=== PATIENT | male | born 1995 | race Caucasian/White ===

== ENCOUNTER 2018-12-02 17:27 | Emergency (ER) | payer SELFPAY ==
--- NOTE | 2018-12-02 17:40 | EDPHY ---
General Time Seen by Provider: 12/02/18 17:39 Narrative: CLINICAL IMPRESSION: Dizziness ASSESSMENT/PLAN: Patient is a 23-year-old male with no significant medical history who takes no medications presents with an episode of dizziness while up at [place]. Patient is afebrile and not toxic-appearing, he is in no acute distress on arrival. His neurological exam is grossly normal with no focal deficit, negative test of skew, no truncal or gait ataxia. The onset was sudden, not insidious. There are no associated cranial nerve abnormalities and the patient has no complaints on my examination. I considered the other potentially dangerous causes of central vertigo, stroke, tumor, bleed, but the patient has no indication of central vertigo. ECG revealed nonspecific ST changes, no evidence of ischemia, WPW, prolonged QT or Brugada syndrome. CBC and BMP unremarkable. There was no evidence of anemia or hypoglycemia. Negative orthostatics. Plan is to treat the patient symptomatically and followup with PCP after an outpatient trial. No indication for admission at this time. Patient was treated with IV fluids for dehydration which I suspect is contributory as he has had very little to eat or drink today. On repeat examination prior to discharge he was able to ambulate without difficulty and his neurological exam remained grossly normal; he denied any complaints. At this time, I feel that he is safe for discharge to home with follow-up with PCP and strict return precautions for any symptoms concerning for central etiology or inability to safely perform activities of daily living. Patient will return for recurrent dizziness, headache, visual changes, ataxia, focal weakness, chest pain, shortness of breath or for any other concerning symptom. Patient verbalized understanding he is in agreement with this plan. DIFFERENTIAL DX: Dizziness including but not limited to peripheral and central causes of vertigo , orthostatic causes including dehydration, and blood loss. ED COURSE: 1749: Discussed with Dr. Philip 1804: ECG reviewed by myself and Dr. Philip, nonspecific ST changes without evidence of acute ischemia, dysrhythmia, WPW, prolonged QT or Brugada. 1857: Patient is well-appearing, he remains asymptomatic and was able to ambulate without difficulty. Neurological exam remained grossly normal with no focal deficit. CHIEF COMPLAINT: Dizziness, now resolved HPI: Patient is a 23-year-old male with no significant medical history, takes no medications who presents after sustaining an episode of dizziness up at [place]. 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 Patient reports very vigorous daily work, had very little to eat or drink today. Was putting a course together when he had a sudden onset of feeling dizzy and generally weak. Patient did not fall, he denies any ataxia. He has had no recent headache, visual changes, fever, numbness or tingling of extremities or focal weakness. Patient reports remote head injury approximately 6 weeks ago, denies any other trauma. Patient reports no issues with headaches or symptoms since that injury. Patient has never experienced anything like this before. Denies any dizziness on arrival. He has had no chest pain, shortness of breath or abdominal pain. He has had no recent chiropractic adjustments. He denies any urinary symptoms to include dysuria, hematuria or frequency. Bowel movements have been regular and normal. PMH: Denies Family History: Noncontributory Social History: Denies alcohol, denies marijuana or other illicit drug use, remote smoker REVIEW OF SYSTEMS: All other systems negative Constitutional: No fever, no chills, appetite change. Eyes: No discharge, vision change ENT: No sore throat, congestion, ear pain. Cardiovascular: No chest pain, no palpitations. Respiratory: No cough, no shortness of breath. Gastrointestinal: No abdominal pain, no vomiting, diarrhea. Genitourinary: No hematuria, dysuria, flank pain, pelvic pain Musculoskeletal: No back pain, joint swelling, joint pain, myalgias. Skin: No rashes, color change. Neurological: Dizziness. No headache or weakness. PHYSICAL EXAM: General Appearance: Patient is well-developed, well-appearing and in no acute distress HENT: Normocephalic, atraumatic. Bilateral external ears are normal. Bilateral tympanic membranes are normal with pearly erickson reflex. Nares are clear, mucosa is pink. Oropharynx is clear, uvula is midline. There is no tonsillar enlargement or exudate. The dentition is normal. Eyes: PERRLA, no acute vision change, nystagmus, swelling, discharge, pain or photosensitivity. Conjunctiva pink, no pallor or injection Neck: Supple, nontender, no lymphadenopathy, no midline pain, FROM, no meningismus. Respiratory: There are no retractions, lungs are clear to auscultation. Cardiac: Regular rate and rhythm, no murmurs or gallops. Gastrointestinal: Abdomen is soft, nontender, bowel sounds normal, no masses/ hernia, no rigidity, guarding or focal peritoneal findings. Neurological: MENTAL STATUS: Patient is alert and oriented to person, place, time, and situation. Recent and remote memory are intact. Attention and concentration are normal. Found knowledge is appropriate to level of education. Mood and affect normal. SPEECH: Language including naming, repetition, comprehension, and spontaneous speech are normal. No dysarthria or dysphagia. CRANIAL NERVES: II: Visual mathew are full to confrontation. Vision is grossly intact. III, IV, : Pupils are equal, round, reactive to light. Extraocular eye movements are full and without nystagmus. V: Facial sensation is intact to touch symmetrically in all 3 divisions. VII: Face is symmetric at rest with no asymmetry of grimace or evidence of facial weakness. VIII: Hearing is intact bilaterally to finger rub. IX, X: Palate is midline and elevates symmetrically with intact cough/gag. XI: Sternocleidomastoid and trapezius strength is normal. XII: Tongue protrudes midline without atrophy or fasciculations. MOTOR: Normal bulk and tone symmetrically in the upper and lower extremities. Upper extremities: shoulder abduction, elbow flexion, elbow extension, flexion of fingers and finger abduction strength 5/5 bilaterally. Lower extremities: hip flexion, knee flexion and extension, plantar and dorsiflexion of foot, and great toe extension strength 5/5 bilaterally. No pronator drift. SENSORY: Sensation is intact to light touch and symmetric in the UE's in LE's bilaterally. Romberg is negative. COORDINATION: Fine motor and rapid alternating movements are normal. Finger to nose is normal bilaterally. Wect-hc-[id number] is normal bilaterally. No abnormal movements noted. There is no tremor at rest or with posture or action. GAIT/STATION: Casual, straightforward gait is normal. Patient can walk on toes and on heels. No gait instability. Skin: Warm, dry, no rashes, no nodules on palpation. Musculoskeletal: Extremities are symmetrical, full range of motion, no tenderness, deformity, swelling, or erythema. Psychiatric: Patient is oriented X 3, there is no agitation. MEDICAL DECISION MAKING: Patient was seen independently. Secondary supervising physician at time of evaluation was Dr. Philip, he also evaluated this patient. Diagnosis: Dizziness, resolved. New, requires workup Summary: See Assessment and Plan for summary of ED visit Clinical lab tests: ordered / reviewed. Independent visualization of images, tracing, or specimens: Yes. Decision to obtain medical records or history from someone other than the patient: No Review / Summarize previous medical records: None available Discussed patient with another provider: Yes, Dr. Philip Patient Progress: Stable, discharged. - Diagnostics EKG: I reviewed patient's EKG. See [facility] for interpretation ( Reviewed by myself and Dr. Philip) - History Smoking Status: Former smoker - Objective Vital Signs: Initial Vital Signs Temperature (C) 36.9 C 12/02/18 17:28 Heart Rate 69 12/02/18 17:28 Respiratory Rate 16 12/02/18 17:28 Blood Pressure 144/58 H 12/02/18 17:28 O2 Sat (%) 97 12/02/18 17:28 O2 Delivery Mode Room Air Allergies/Adverse Reactions: bee stings Allergy (Uncoded 12/02/18 17:32) Home Medications: Medication Instructions Recorded NK [No Known Home Meds] 12/02/18 Laboratory Results: Laboratory Results 12/02/18 18:00 12/02/18 18:00 12/02/18 12/02/18 18:00 18:00 WBC 8.07 10^3/uL 10^3/uL (3.80-9.50) RBC 4.92 10^6/uL 10^6/uL (4.40-6.38) Hgb 14.4 g/dL g/dL (13.7-17.5) Hct 42.1 % % (40.0-51.0) MCV 85.6 fL fL (81.5-99.8) MCH 29.3 pg pg (27.9-34.1) MCHC 34.2 g/dL g/dL (32.4-36.7) RDW 12.4 % % (11.5-15.2) Plt Count 222 10^3/uL 10^3/uL (150-400) MPV 9.2 fL fL (8.7-11.7) Neut % (Auto) 67.1 % % (39.3-74.2) Lymph % (Auto) 23.2 % % (15.0-45.0) [place] % (Auto) 8.4 % % (4.5-13.0) Eos % (Auto) 0.7 % % (0.6-7.6) Baso % (Auto) 0.4 % % (0.3-1.7) Nucleat RBC Rel Count 0.0 % % (0.0-0.2) Absolute Neuts (auto) 5.41 10^3/uL 10^3/uL (1.70-6.50) Absolute Lymphs (auto) 1.87 10^3/uL 10^3/uL (1.00-3.00) Absolute Monos (auto) 0.68 10^3/uL 10^3/uL (0.30-0.80) Absolute Eos (auto) 0.06 10^3/uL 10^3/uL (0.03-0.40) Absolute Basos (auto) 0.03 10^3/uL 10^3/uL (0.02-0.10) Absolute Nucleated RBC 0.00 10^3/uL 10^3/uL (0-0.01) Immature Gran % 0.2 % % (0.0-1.1) Immature Gran # 0.02 10^3/uL 10^3/uL (0.00-0.10) Sodium 138 mEq/L mEq/L (135-145) Potassium 3.6 mEq/L mEq/L (3.5-5.2) Chloride 110 mEq/L mEq/L (97-110) Carbon Dioxide 19 mEq/l L mEq/l (22-31) Anion Gap 9 mEq/L mEq/L (6-14) BUN 17 mg/dL mg/dL (7-23) Creatinine 1.0 mg/dL mg/dL (0.7-1.3) Estimated GFR > 60 Glucose 81 mg/dL mg/dL (70-100) Calcium 8.7 mg/dL mg/dL (8.5-10.4) Medications Given: Discontinued Medications Sodium Chloride (Ns) 1,000 mls @ 0 mls/hr IV ONCE ONE PRN Reason: Wide Open Stop: 12/02/18 17:53 Last Admin: 12/02/18 18:07 Dose: 1,000 mls Departure - Departure Disposition: Home, Routine, Self-Care Clinical Impression: Dizziness Condition: Good Instructions: Dizziness (ED) Additional Instructions: DISCHARGE INSTRUCTIONS FROM YOUR DOCTOR Thank you for visiting our emergency department today. Please keep in mind that discharge from the emergency department does not mean that there is nothing wrong - it simply means that we have not identified an emergency condition that requires further evaluation or treatment in the hospital. You should always plan to follow up with primary care for re-evaluation of your condition in the next 2-3 days. It is very important that you stay hydrated, please make sure that you are eating and drinking plenty of fluids. Return to the emergency department for fainting episodes, severe headache, recurrent dizziness, extremity weakness, fever or for any other concerning symptom. People present with illnesses and injuries in different ways, and it is always possible that we have missed something. You may always return for re-evaluation if symptoms worsen or if they are not improving or if you develop new/different symptoms. Again, thank you for choosing our emergency department. We hope that you feel better. Referrals: Severiano Teran, [Doctor of Osteopathy] - 2-3 days, call for appt. (It is very important that you establish care with primary care provider, please use this referral if you do not have a provider already.)
[2018-12-02] MEDS ORDERED: NS 1,000 ML IV ONE (17:52)
[2018-12-02 18:22] LABS: PLATELET COUNT 222 10^3/uL (150-400)
[2018-12-02 19:34] VITALS: BP 122/73
== END 2018-12-02 19:34 | disposition home or self-care (01) ==
DX: R42 Dizziness and giddiness (principal)